=== PATIENT | male | born 1965 | race Caucasian/White ===

== ENCOUNTER 2019-04-24 19:58 | Emergency (ER) | payer MEDICARE ==
[~2019-04-24 19:58] MED LIST: CEPH500T7 PO
--- NOTE | 2019-04-24 20:07 | ER Report ---
History and Physical Time Seen By MD: 20:03 Hx. of Stated Complaint: RIGHT 5TH FINGER LACERATION FROM BAND SAW AT APPROXIMATELY 1700 HPI/ROS CHIEF COMPLAINT: Right finger pain HISTORY OF PRESENT ILLNESS: Pt is 53 yo M c/o right finger pain and bleeding after cutting it on a Band saw at about 5Pm today. States he was unable to get the bleeding to stop. Has a history of an avulsion fx on his 1st digit of right hand. No other complaints today. Hasn't taken anything for the pain. Pain worsens with flexion of the PIP joint. REVIEW OF SYSTEMS: Respiratory: No cough, no dyspnea. Cardiovascular: No chest pain, no palpitations. Gastrointestinal: No vomiting, no abdominal pain. Musculoskeletal: No back pain, 5th digit on right pain. Allergies: Coded Allergies: No Known Drug Allergies (Unverified , 04/24/19) Home Meds Active Scripts Cephalexin (KEFLEX) 500 Mg Capsule, 500 MG PO Q6H, #18 CAP Prov:MACARENA MANCIA [facility] 04/24/19 Reported Medications Baclofen (BACLOFEN) 20 Mg Tablet, 25 MG PO BID, #15 TAB 04/24/19 Meloxicam (MELOXICAM) 15 Mg Tablet, 12.5 MG PO BID 04/24/19 Meclizine Hcl (MECLIZINE HCL) 12.5 Mg Tablet, 25 MG PO BID 04/24/19 Tramadol Hcl (TRAMADOL HCL) 50 Mg Tablet, 50 MG PO Q4-6H PRN for PAIN, TAB 04/24/19 [Blood Pressure ] No Conflict Check, 5 MG PO DAILY 04/24/19 Discontinued Scripts Cephalexin 500 Mg Tab (KEFLEX 500 MG TAB) 500 Mg Tablet, 500 MG PO Q6H, #28 TAB Prov:MACARENA MANCIA [facility] 07/15/16 Past Medical/Surgical History CVA, HTN, COPD, low back pain, glasses, avulsion Reviewed Nurses Notes: Yes Hx Smoking: Yes Smoking Status: Current: Every Day Smoker Hx Substance Use Disorder: No Constitutional Vital Sign - Last 24 Hours 04/24/19 04/24/19 04/24/19 04/24/19 19:59 20:02 20:30 21:00 Temp 98.6 Pulse 69 Resp 17 B/P (MAP) 155/87 (109) 155/87 123/91 (102) 137/86 (103) Pulse Ox 94 O2 Delivery Room Air Physical Exam General Appearance: The patient is alert, has no immediate need for airway protection and no current signs of toxicity, appears older than actual age Eyes: Pupils equal and round no injection. Respiratory: Chest is non tender, lungs are clear to auscultation. Cardiac: regular rate and rhythm, cap refill <2sec Gastrointestinal: Abdomen is soft and non tender, no masses, bowel sounds normal. Musculoskeletal: Neck: Neck is supple and non tender. Limited ROM in PIP joint of 5th digit on Right hand, FROM on DIP and MCP joint of 5th digit Skin: No rashes, 2cm laceration of the right 5th digit over the dorsal lateral PIP joint, bleeding Neuro: sensation intact in 5th digit DIFFERENTIAL DIAGNOSIS: After history and physical exam differential diagnosis was considered for laceration, contusion, avulsion Medical Decision Making EKG/Imaging Imaging Right fifth finger, 3 views. HISTORY: Cut with band saw. COMPARISON: None. Soft tissue swelling is present along the fifth PIP and MCP joints. Small gas collections are present in the soft tissues along the radial aspect of the fifth proximal phalanx. Minimal degenerative changes are present in the fingers. No radiopaque foreign bodies. No acute fractures. IMPRESSION: Negative for acute bony abnormality. Report Dictated By: Gagandeep Dang MD at 04/24/2019 8:53 PM Report E-Signed By: Gagandeep Dang MD at 04/24/2019 8:55 PM ED Course/Re-evaluation ED Course Patient presented with right 5th digit pain after cutting his finger on a Band saw at 5pm. States he was unable to get the bleeding to stop. Has pain with movement of the PIP joint. Physical exam was done showing a 2cm laceration to the dorsum of the PIP joint of the 5th digit with active bleeding. Sensation, circulation and muscle strength intact. X-ray was ordered fo 5th digit. Differential diganoses were considered. 6mL of 1% Lidocaine injected into 5th digit for digital block. Turnicate applied. 7 simple interrupted sutures of 5-0 Prolene placed. patient's status improved. X-ray was negative for any acute abnormalities. Patient discharged with instructions to keep wound dry for 48 hours, and return to ED, urgent care or PCP in 7-10 days for suture removal. Decision to Disposition Date: Apr 24, 2019 Decision to Disposition Time: 21:10 Depart Departure Latest Vital Signs Vital Signs Date Time Temp Pulse Resp B/P (MAP) Pulse Ox O2 Delivery O2 Flow Rate FiO2 04/24/19 21:00 137/86 (103) 04/24/19 20:02 98.6 69 17 94 Room Air Impression: Primary Impression: Laceration of finger of right hand Condition: Stable Disposition: HOME OR SELF-CARE Referrals: CALLIE HYLTON DO (PCP) New Scripts Cephalexin (KEFLEX) 500 Mg Capsule 500 MG PO Q6H, #18 CAP Prov: MACARENA MANCIA 04/24/19 Patient Instructions: Finger Laceration (ED) Additional Instructions: Keep wound dry for 48 hours. Follow up with your primary care provider in the next 7-10 days to have sutures removed. Monitor for signs of infection; redness, swelling, heat, discharge, increasing pain or red streaking. Take Tylenol or Ibuprofen as needed for pain. Return to the ER with any concerns. You may change dressing as needed. Problem Qualifiers Primary Impression: Laceration of finger of right hand Encounter type: initial encounter Finger: little finger Damage to nail status: without damage Foreign body presence: without foreign body Qualified Codes: S61.216A - Laceration without foreign body of right little finger without damage to nail, initial encounter MACARENA MANCIA Apr 24, 2019 20:07
[2019-04-24] MEDS ORDERED: MECL12.5 PO (20:09)
[2019-04-24] MEDS ORDERED: TRAM-420 PO (20:09)
[2019-04-24] MEDS ORDERED: BLOOD PRESSURE PO (20:09)
[2019-04-24] MEDS ORDERED: MELO-207 PO (20:09)
[2019-04-24] MEDS ORDERED: BACL-51 PO (20:17)
[2019-04-24 21:00] VITALS: BP 137/86
--- NOTE | 2019-04-24 21:03 | RADIOLOGY IMAGING REPORT ---
FACILITY: [facility] [place] PATIENT NAME: Ramon Keenan : 1965 MR: [id number] V: [id number] EXAM DATE: ORDERING PHYSICIAN: MACARENA MANCIA TECHNOLOGIST: Location: [facility] - [place] Patient: Ramon Keenan : 1965 Visit/Account:[id number] Date of Sevice: 04/24/2019 Right fifth finger, 3 views. HISTORY: Cut with band saw. COMPARISON: None. Soft tissue swelling is present along the fifth PIP and MCP joints. Small gas collections are present in the soft tissues along the radial aspect of the fifth proximal phalanx. Minimal degenerative reese ges are present in the fingers. No radiopaque foreign bodies. No acute fractures. IMPRESSION: Negative for acute bony abnormality. Report Dictated By: Gagandeep Dang MD at 04/24/2019 8:53 PM Report E-Signed By: Gagandeep Dang MD at 04/24/2019 8:55 PM WSN:[id number]
[2019-04-24] MEDS ORDERED: CEPH-13 PO (21:16)
[2019-04-24] MEDS ORDERED: CEPHALEXIN 500 MG CAP TH 2 CAP/BOTTLE PO ONE (21:20)
== END 2019-04-24 21:34 | disposition home or self-care (01) ==
LOC: ER 20:28
DX: S61.216A Laceration without foreign body of right little finger without damage to nail, initial encounter (principal); W29.8XXA Contact with other powered hand tools and household machinery, initial encounter
CPT/HCPCS: 99283

== ENCOUNTER 2019-05-06 12:08 | Emergency (ER) | payer MEDICARE ==
[~2019-05-06 12:08] MED LIST changes: +BACL-51 PO; +BLOOD PRESSURE PO; +CEPH-13 PO; +MECL12.5 PO; +MELO-207 PO; +TRAM-420 PO
[2019-05-06 12:11] VITALS: BP 125/79
--- NOTE | 2019-05-06 12:11 | ER Report ---
History and Physical Time Seen By MD: 12:06 HPI/ROS CHIEF COMPLAINT: suture removal HISTORY OF PRESENT ILLNESS: Pt is 53 yo M her for suture removal after cutting his r pinky finger on a band saw. Pt had sutures placed 12 days ago. Pt states that two sutures fell out when they were initially placed. Pt lateral aspect of his wound is gapped 2mm due to sutures that fell out however wound is healing. PT states he has full range of motion and sensation is "good". REVIEW OF SYSTEMS: Constitutional: No fever, no chills. Musculoskeletal: No finger pain Skin: healing wound Neurological: no parathesias Allergies: Coded Allergies: No Known Drug Allergies (Unverified , 04/24/19) Home Meds Active Scripts Cephalexin (KEFLEX) 500 Mg Capsule, 500 MG PO Q6H, #18 CAP Prov:MACARENA MANCIA [facility] 04/24/19 Reported Medications Baclofen (BACLOFEN) 20 Mg Tablet, 25 MG PO BID, #15 TAB 04/24/19 Meloxicam (MELOXICAM) 15 Mg Tablet, 12.5 MG PO BID 04/24/19 Meclizine Hcl (MECLIZINE HCL) 12.5 Mg Tablet, 25 MG PO BID 04/24/19 Tramadol Hcl (TRAMADOL HCL) 50 Mg Tablet, 50 MG PO Q4-6H PRN for PAIN, TAB 04/24/19 [Blood Pressure ] No Conflict Check, 5 MG PO DAILY 04/24/19 Hx Smoking: Yes Smoking Status: Current: Every Day Smoker Hx Substance Use Disorder: No Constitutional Vital Sign - Last 24 Hours 05/06/19 12:11 Temp 98.2 Pulse 85 Resp 16 B/P (MAP) 125/79 Pulse Ox 92 O2 Delivery Room Air Physical Exam General appearance: [alert no distress] Right hand: There is no significant swelling. There is no obvious deformity to the hand. There is no tenderness over the 5th digit Skin: Intact Neurologic exam: The patient has normal sensation distal to the injury. Tendon function is intact. Vascular exam: Normal pulses and capillary refill in the fingers [ ] DIFFERENTIAL DIAGNOSIS: After history and physical exam differential diagnosis was considered for suture removal Medical Decision Making ED Course/Re-evaluation ED Course 05/06/2019 12:12:49 pm ED procedure: Suture removal: Pts wound partially dehisced due to two sutures that fell out when initially placed. The dehised section is healing without erythema or drainage; Removal of 4 remaining sutures without any complications Decision to Disposition Date: May 06, 2019 Decision to Disposition Time: 12:12 Depart Departure Latest Vital Signs Vital Signs Date Time Temp Pulse Resp B/P (MAP) Pulse Ox O2 Delivery O2 Flow Rate FiO2 05/06/19 12:11 98.2 85 16 125/79 92 Room Air Impression: Primary Impression: Encounter for removal of sutures Condition: Improved Disposition: HOME OR SELF-CARE Referrals: CALLIE HYLTON DO (PCP) Patient Instructions: GENERAL ER DISCHARGE INSTRUCTIONS Additional Instructions: Your sutures are removed. Your wound does not appear infected. The one end of your wound did not close fully due to the two sutures falling out early. The wound will close on its own over time. Keep area clean. Return for any concerns. RAJWINDER MONTES DE OCA DO May 06, 2019 12:11
== END 2019-05-06 12:22 | disposition home or self-care (01) ==
LOC: ER 12:11
DX: S61.216D Laceration without foreign body of right little finger without damage to nail, subsequent encounter (principal)